=== PATIENT | female | born 1950 | race Caucasian/White ===

== ENCOUNTER 2021-01-28 16:34 | Outpatient (REF) | payer MEDICARE, BC, SELFPAY ==
[2021-01-28 21:49] LABS: Calculated LDL 88 mg/dL (<100); Cholesterol 187 mg/dL (<200); HDL Cholesterol 43 mg/dL (40-60); Triglyceride 281 mg/dL (<150)
== END 2021-01-28 16:35 | disposition home or self-care (01) ==
LOC: NCHCN 16:34
PROVIDERS: PCP Family Medicine; Visit Provider Family Medicine
DX: Z00.00 Encounter for general adult medical examination without abnormal findings (principal); E78.5 Hyperlipidemia, unspecified
CPT/HCPCS: 80061

== ENCOUNTER 2024-10-30 11:52 | Outpatient (REF) | payer MEDICARE, BC, SELFPAY | END 2024-10-30 11:53 | disposition home or self-care (01) | LOC: NCHCN 11:52 | PROVIDERS: PCP Family Medicine; Visit Provider Internal Medicine | DX: R30.0 Dysuria (principal); B96.29 Other Escherichia coli [E. coli] as the cause of diseases classified elsewhere | CPT/HCPCS: 87077; 87086; 87186 ==

== ENCOUNTER 2024-11-09 18:15 | Outpatient (REF) | payer MEDICARE, BC, SELFPAY ==
[2024-11-09 21:40] LABS: Hemoglobin A1C 5.7 % (<5.7)
[2024-11-09 21:45] LABS: Anion Gap 9.7 mmol/L (3-11); BUN 25 mg/dL (7-18); CO2 25.3 mmol/L (21.0-32.0); CREATININE 1.3 mg/dL (0.55-1.02); Calcium 9.4 mg/dL (8.5-10.1); Calculated LDL 100 mg/dL (<100); Chloride 106 mmol/L (98-107); Cholesterol 199 mg/dL (<200); Estimated GFR 43.42 (mL/min/1.73m2); Glucose 97 mg/dL (74-106); HDL Cholesterol 61 mg/dL (>or=50); Potassium 4.3 mmol/L (3.5-5.1); Sodium 141 mmol/L (136-145); Triglyceride 191 mg/dL (<150)
== END 2024-11-09 18:16 | disposition home or self-care (01) ==
LOC: NCHCN 18:15
PROVIDERS: PCP Family Medicine; Visit Provider Family Medicine
DX: Z13.220 Encounter for screening for lipoid disorders (principal); Z13.1 Encounter for screening for diabetes mellitus
CPT/HCPCS: 80048; 80061; 83036